=== PATIENT | male | born 1990 | race Hispanic/Latino ===

== ENCOUNTER 2019-07-30 19:33 | Emergency (ER) | payer SELFPAY ==
[2019-07-30] MEDS ORDERED: hydrOXYzine 25 MG TAB ONE (20:26)
[2019-07-30] MEDS ORDERED: Ibuprofen 800 MG TAB ONE (20:26)
== END 2019-07-30 20:33 | disposition home or self-care (01) ==
LOC: BURERS 19:33
DX: F41.9 Anxiety disorder, unspecified (principal); I10 Essential (primary) hypertension; Z79.82 Long term (current) use of aspirin; Z79.899 Other long term (current) drug therapy
CPT/HCPCS: 99283

== ENCOUNTER 2020-02-06 17:06 | Emergency (ER) | payer SELFPAY ==
[2020-02-06] MEDS ORDERED: Lorazepam 2 MG/ML VIAL ONE (17:44)
[2020-02-06] MEDS ORDERED: Aspirin Chewable 81 MG TAB ONE (17:45)
[2020-02-06 17:47] LABS: Hemoglobin 13.5 g/dL (14.0-18.0); Mean Corpuscular HGB CONC 29.8 g/dL (32.0-36.0); Mean Corpuscular Hemoglobin 26.9 pg (27.0-31.0); Mean Corpuscular Volume 90.4 fL (78.0-98.0); Mean Platelet Volume 6.6 fL (7.4-10.4); Platelet Count 299 thou/uL (130-400); RBC Distribution Width 14.2 % (11.5-14.5); Red Blood Cell (RBC) Count 5.02 mill/uL (4.70-6.10); White Blood Cell (WBC) Count 9.8 thou/uL (4.8-10.8)
[2020-02-06 17:57] LABS: ALT (SGPT) 22 U/L (8-55); AST (SGOT) 17 U/L (5-34); Albumin 3.7 g/dL (3.5-5.0); Alkaline Phosphatase 112 U/L (40-110); Anion Gap 12 mmol/L (10-20); BUN (Urea Nitrogen) 14 mg/dL (8.9-20.6); Bilirubin, Total 0.5 mg/dL (0.2-1.2); Calc. Creatinine Clearance 0 mL/min (70-130); Calcium 8.7 mg/dL (7.8-10.44); Carbon Dioxide 27 mmol/L (22-29); Chloride 103 mmol/L (98-107); Estimated GFR-MDRD 87; Globulin 3.5 g/dL (2.4-3.5); Glucose 120 mg/dL (70-105); Potassium 3.9 mmol/L (3.5-5.1); Protein, Total 7.2 g/dL (6.0-8.3); Sodium 138 mmol/L (136-145)
[2020-02-06 18:05] LABS: #Basophils 0.1 thou/uL (0.0-0.2); #Eosinphils 0.3 thou/uL (0.0-0.7); #Lymphocytes 2.2 thou/uL (1.20-3.40); #Monocytes 0.5 thou/uL (0.11-0.59); #Neutrophils 6.7 thou/uL (1.40-6.50); %Eosinophils 2.6 % (0.0-10.0); %Lymphocytes 22.3 % (21.0-51.0); %Monocytes 5.4 % (0.0-10.0); %Neutrophils 68.7 % (42.0-75.0); Hypochromia SLIGHT = 6-15 cells (100X) (0-5/hpf); MDiff Complete? YES
--- NOTE | 2020-02-06 18:17 | RAD ---
PORTABLE UPRIGHT FRONTAL CHEST RADIOGRAPH: 02/06/20 COMPARISON: None. HISTORY: Chest pain. FINDINGS: The lungs are clear. Heart and mediastinal contours are grossly unremarkable. IMPRESSION: No acute findings. POS: [facility]
== END 2020-02-06 18:30 | disposition home or self-care (01) ==
LOC: BURERS 17:06
DX: R07.89 Other chest pain (principal); I10 Essential (primary) hypertension; E66.01 Morbid (severe) obesity due to excess calories
CPT/HCPCS: 36415; 71045; 80053; 84484; 85025; 93005; J2060